=== PATIENT | male | born 1930 | race Caucasian/White ===

== ENCOUNTER 2019-12-11 19:45 | Inpatient (IN) | payer OTHER ==
[~2019-12-11] VITALS: Ht 172.7 cm; Wt 68.0 kg
--- NOTE | 2019-12-11 20:04 | NUR ---
PATIENT CAME TO ER BED 1 C/O NEAR SYNCOPAL EVENT AT HOME. PATIENT STATES THAT HE FELT WEAK AND WENT TO THE FLOOR AFTER MOVING HIS GARBAGE CAN AT HOME. AAOX4. NO SOB. BREATHING EVENLY AND UNLABORED ON ROOM AIR. CONNECTED TO THE TERRITORY SALES MANAGER MEDICAL.
--- NOTE | 2019-12-11 20:08 | NUR ---
FERMÍN CORNELIUS TALKING TO DR. PETERSON REGARDING PT.
--- NOTE | 2019-12-11 20:10 | NUR ---
PATIENT PLACED ON ZOL EKG PADS FOR MONITORING
[2019-12-11 20:18] LABS: BASOPHILS % (AUTO) 0.5 % (0.0-2.0); EOSINOPHILS % (AUTO) 1.7 % (0.0-6.0); HEMATOCRIT 37 % (39-51); HEMOGLOBIN 12.2 g/dL (13.5-17.5); LYMPHOCYTES # (AUTO) 1.6 /CMM (0.8-4.8); LYMPHOCYTES % (AUTO) 17.4 % (20.0-44.0); MEAN CORPUSCULAR HGB CONC 33 g/dl (31.0-36.0); MEAN CORPUSCULAR VOLUME 92 fL (80-96); MONOCYTES # (AUTO) 0.7 /CMM (0.1-1.30); MONOCYTES % (AUTO) 8.1 % (2.0-12.0); NEUTROPHILS # (AUTO) 6.6 /CMM (1.8-8.9); NEUTROPHILS % (AUTO) 72.3 % (43.0-81.0); PLATELET COUNT (AUTO) 127 /CMM (150-450); RED BLOOD CELL COUNT(AUTO) 3.97 MIL/uL (4.5-6.0); WHITE BLOOD COUNT (AUTO) 9.2 K/uL (4.3-11.0)
[2019-12-11 20:25] LABS: CALCIUM, SERUM 9.4 mg/dL (8.5-10.1); CARBON DIOXIDE 25 mmol/L (21-32); CHLORIDE 103 mmol/L (98-107); CREATININE 1.3 mg/dL (0.6-1.3); GLUCOSE 114 mg/dL (74-106); POTASSIUM 4.2 mmol/L (3.5-5.1); SODIUM SERUM 137 mmol/L (136-145); UREA NITROGEN, BLOOD 21 mg/dL (7-18)
--- NOTE | 2019-12-11 20:49 | NUR ---
PATIENT TAKEN TO CT.
--- NOTE | 2019-12-11 20:56 | NUR ---
FERMÍN CORNELIUS SPOKE TO [facility] REGARDING PT.
--- NOTE | 2019-12-11 20:57 | NUR ---
XRAY TAKEN AT RADIOLOGY ROOM.
--- NOTE | 2019-12-11 20:58 | NUR ---
PATIENT RETURNED FROM CT.
--- NOTE | 2019-12-11 21:04 | NUR ---
Note magdalena in EDM - 12/11/19 at 2221 by ALEKSANDRA PATIENT CAME TO BED 1 C/O NEAR SYNCOPAL EVENT AT HOME. PATIENT STATES THAT HE FELT WEAK AND WENT TO THE FLOOR AFTER MOVING HIS GARBAGE CAN AT HOME. AAOX4. NO SOB. BREATHING EVENLY AND UNLABORED ON ROOM AIR. CONNECTED TO THE COMPUTER SCIENCES PROFESSOR.
--- NOTE | 2019-12-11 21:12 | NUR ---
AT BEDSIDE FOR EVAL
--- NOTE | 2019-12-11 21:44 | NUR ---
REPORT CALLED TO REGIONAL SALES LEADEREDU PRINCE. PENDING ICU ADMISSION.
--- NOTE | 2019-12-11 21:55 | NUR ---
SPOKE WITH QUIQUE ON PHONE, PERIPHERALLY CALCIFIED SOFT TISSUE MASS POSTERIOR TO THE LEFT FEMUR.
--- NOTE | 2019-12-11 22:00 | NUR ---
US AT BEDSIDE
[2019-12-11 22:22] VITALS: BP 155/75
--- NOTE | 2019-12-11 22:30 | NUR ---
STEAMFITTER APPRENTICE NOTE 2220 PT ARRIVED TO UNIT, PT A/O X3. SPEAKS CLEAR IN COMPLETE FULL SENTENCES. DENIES ANY PAIN OR DISCOMFORT AT THIS TIME. IV TO RFA AND LFA PATENT AND INTACT, FLUSHING WELL. PT IN NO RESPIRATORY DISTRESS. PT PLACED ON MONITOR, AND MADE COMFORTABLE. HOB ELEVATED, 02 SAT 94-95% RA. PT PLACED ON 02 VIA NC AT 2 L/MIN. VS: 155/75, PULSE 69 TEMP 97.6. AWAITING FOR ORDERS, PAGED. SIDE RAILS UP X2, WITH BED ALARM ON. CALL LIGHT WITH IN REACH WILL CONTINUE TO MONITOR PT.
[2019-12-11 22:52] VITALS: BP 149/113
[2019-12-11] MEDS ORDERED: MAGNESIUM HYDROXIDE 30 ML UDC PO PRN (23:00)
[2019-12-11] MEDS ORDERED: ONDANSETRON HCL/PF 4 MG/2 ML VIAL IVP PRN (23:00)
[2019-12-11] MEDS ORDERED: Z GUARD REMEDY 2 OZ OINT TP PRN (23:00)
[2019-12-11] MEDS ORDERED: MAG HYDROX/AL HYDROX/SIMETH 30 ML UDC PO PRN (23:00)
[2019-12-11] MEDS ORDERED: ACETAMINOPHEN 325 MG TABLET PO PRN (23:00)
[2019-12-11] MEDS ORDERED: ZOLPIDEM TARTRATE 5 MG TABLET PO PRN (23:00)
[2019-12-11] MEDS: IV 1/2NS 1000 ML 1,000 ML IV PRN (23:24)
[2019-12-11 23:30] VITALS: BP 140/69
[2019-12-12] VITALS (29 sets, daily range): BP systolic 132–157; BP diastolic 57–81
[2019-12-12 04:12] LABS: BASOPHILS % (AUTO) 0.5 % (0.0-2.0); EOSINOPHILS % (AUTO) 1.7 % (0.0-6.0); HEMATOCRIT 39 % (39-51); HEMOGLOBIN 13.2 g/dL (13.5-17.5); LYMPHOCYTES # (AUTO) 1.7 /CMM (0.8-4.8); LYMPHOCYTES % (AUTO) 22.5 % (20.0-44.0); MEAN CORPUSCULAR HGB CONC 33 g/dl (31.0-36.0); MEAN CORPUSCULAR VOLUME 92 fL (80-96); MONOCYTES # (AUTO) 0.7 /CMM (0.1-1.30); NEUTROPHILS # (AUTO) 5.1 /CMM (1.8-8.9); NEUTROPHILS % (AUTO) 66.3 % (43.0-81.0); PLATELET COUNT (AUTO) 127 /CMM (150-450); RED BLOOD CELL COUNT(AUTO) 4.29 MIL/uL (4.5-6.0); WHITE BLOOD COUNT (AUTO) 7.7 K/uL (4.3-11.0)
[2019-12-12 04:26] LABS: ALBUMIN 3.5 g/dL (3.4-5.0); BILIRUBIN,TOTAL 0.8 mg/dL (0.2-1.0); CALCIUM, SERUM 9.6 mg/dL (8.5-10.1); CREATININE 1.1 mg/dL (0.6-1.3); PHOSPHORUS 3.3 mg/dL (2.5-4.9); POTASSIUM 4.3 mmol/L (3.5-5.1); TOTAL PROTEIN, SERUM 6.5 g/dL (6.4-8.2)
[2019-12-12 04:34] LABS: THYROID STIMULATING HORMONE 5.663 uIU/mL (0.358-3.74)
--- NOTE | 2019-12-12 07:28 | NUR ---
RN CLOSING NOTE PT AWAKE IN BED WITH HOB ELEVATED. DENIED ANY PAIN OR DISCOMFORT DURING SHIFT. IV TO RFA AND LFA PATENT AND INTACT. PT IN NO RESPIRATORY DISTRESS DURING SHIFT. ON 02 VIA NC AT 2 L/MIN TOLERATING WELL SATURATING AT 97-99% DURING SHIFT. SIDE RAILS UP X2, WITH BED ALARM ON. CALL LIGHT WITH IN REACH, ENDORSED TO AM RN FOR MAGGI
[2019-12-12] MEDS: VALSARTAN 80 MG TABLET PO SCH (08:15)
[2019-12-12] MEDS: ENOXAPARIN SODIUM 40 MG/0.4 ML DISP.SYRIN SQ SCH (08:16)
--- NOTE | 2019-12-12 08:27 | NUR ---
RN NOTE 0715: received patient awake, A/Ox4. No c/o discomfort, no CP, dizziness or palpitations. PIVs intact. IVF infusing as ordered. VSS. SR with 1st degree block 70's on the monitor. 0810: Discussed with patient re: new order of Valsartan and Lovenox and hold home meds, verbalized understanding. Diet tolerated well. Able to inform staffs for needs.
[2019-12-12] MEDS ORDERED: CHLO473M5 MM (08:34)
[2019-12-12] MEDS ORDERED: TERA10CA4 PO (08:34)
[2019-12-12] MEDS ORDERED: GABA-532 PO (08:34)
[2019-12-12] MEDS ORDERED: EZET10TA16 PO (08:34)
[2019-12-12] MEDS ORDERED: ASPI-1169 PO (08:34)
[2019-12-12] MEDS ORDERED: AMLO10TA4 PO (08:34)
[2019-12-12] MEDS ORDERED: METO25TA20 PO (08:34)
[2019-12-12] MEDS ORDERED: LOSA50TA39 PO (08:34)
--- NOTE | 2019-12-12 13:39 | NUR ---
RN NOTE 1100: S/E by Dr. Munoz, with order of DC to [facility]. 1200: Spoke with Britany [facility] [phone] and given info needed. 1310: Per CN, will not able to transfer to [place] secondary to Covid test needed, with order to swab patient today. Made patient aware re: the situation, verbalized understanding.
[2019-12-12] MEDS: IV 1/2NS 1000 ML 1,000 ML IV PRN (17:49)
--- NOTE | 2019-12-12 19:15 | NUR ---
QUALITY ASSISTANT OPENING NOTES: PATIENT CAME FROM ICU, AWAKE A/O X4. NO SOB NOTED. NO COMPLAIN OF PAIN. CALL LIGHT WITHIN REACH. WITH URINAL AT THE BEDSIDE. INSTRUCTED TO CALL FOR ANY HELP,PATIENT VERBALIZED UNDERSTANDING.
--- NOTE | 2019-12-12 19:24 | NUR ---
RN NOTE Transferred patient via ACLS protocol, no significant changes. Endorsed care to Thelma. MANUELS.
[2019-12-13] VITALS: BP 156/76
[2019-12-13 01:10] VITALS: BP 156/76
[2019-12-13 04:00] VITALS: BP 108/55
[2019-12-13 05:37] VITALS: BP 108/55
--- NOTE | 2019-12-13 06:00 | NUR ---
RN CLOSING NOTES: PATIENT IN BED AWAKE A/O X4. NO SOB NOTED. NO COMPLAIN OF PAIN. CALL LIGHT WITHIN REACH. BED ALARM ON. BED IN LOWEST AND LOCKED POSITION. ISOLATION FOR R/O COVID OBSERVED AT ALL TIMES.
--- NOTE | 2019-12-13 07:30 | NUR ---
METAL BUILDING ASSEMBLER OPENING NOTES RECEIVED PT IN BED, AWAKE, A/O X4, AMBULATORY. PT TOLERATING RA, WITH NO ACUTE RESPIRATORY DISTRESS NOTED. PT DENIES ANY PAIN OR DISCOMFORT AT THIS TIME. ON TELEMONITORING CONTROLLED SB 54 WITH OCCASIONAL PACS, PVCS AND BBB. IVF /2 ND AT 50 ML/HR TO RFA G20, INTACT AND OPERATIONAL. PT KEPT COMFORTABLE IN BED. HOB ELEVATED. CALL LIGHT KEPT WITHIN REACH. PT'S BED IN LOWEST, LOCKED POSITION WITH SR X3. WILL CONTINUE PLAN OF CARE.
[2019-12-13 08:00] VITALS: BP_SYST 140; BP_SYST 150; BP_DIAS 52
[2019-12-13] MEDS: ENOXAPARIN SODIUM 40 MG/0.4 ML DISP.SYRIN SQ SCH (08:52)
[2019-12-13] MEDS: VALSARTAN 80 MG TABLET PO SCH (08:53)
[2019-12-13] MEDS: IV 1/2NS 1000 ML 1,000 ML IV PRN (08:53)
[2019-12-13 11:14] LABS: CALCIUM, SERUM 9.7 mg/dL (8.5-10.1); CARBON DIOXIDE 27 mmol/L (21-32); CHLORIDE 105 mmol/L (98-107); CREATININE 1.1 mg/dL (0.6-1.3); GLUCOSE 112 mg/dL (74-106); POTASSIUM 3.7 mmol/L (3.5-5.1); SODIUM SERUM 141 mmol/L (136-145); UREA NITROGEN, BLOOD 14 mg/dL (7-18)
[2019-12-13 11:20] LABS: ALANINE AMINOTRANSFERASE 30 U/L (12-78); ALBUMIN 3.6 g/dL (3.4-5.0); ALKALINE PHOSPHATASE 62 U/L (46-116); ASPARTATE AMINOTRANSFERASE 21 U/L (15-37); BILIRUBIN,TOTAL 0.8 mg/dL (0.2-1.0); PHOSPHORUS 2.6 mg/dL (2.5-4.9); TOTAL PROTEIN, SERUM 6.8 g/dL (6.4-8.2)
--- NOTE | 2019-12-13 11:30 | NUR ---
STOCK DRIER TENDER NOTES PT REPORTED WORSENING BRUISE TO INNER THIGH, PICTURE TAKEN. HOSPITALIST/DR.SAM Roth MADE AWARE. NO NEW ORDERS NOTED AT THIS TIME.
[2019-12-13 12:00] VITALS: BP 145/64
--- NOTE | 2019-12-13 16:38 | NUR ---
ANDROID SOFTWARE ENGINEER NOTES PT ON TELEMONITORING WITH SR 74 WITH OCCASIONAL PACS, PVCS AND BBB. PT DENIES ANY CHEST PAIN OR DISCOMFORT. WILL CONTINUE TO MONITOR.
--- NOTE | 2019-12-13 18:10 | NUR ---
APPRENTICE PAINTER BRUSH NOTES PT REMAINS AWAKE, A/O X4, AMBULATORY. PT TOLERATING RA, WITH NO ACUTE RESPIRATORY DISTRESS NOTED. PT DENIES ANY PAIN OR DISCOMFORT AT THIS TIME. ON TELEMONITORING SR 72 WITH OCCASIONAL PACS, PVCS AND BBB. PIV TO RFA G20, REMOVED AND APPLIED DRESSING. DISCHARGE INSTRUCTIONS AND INVENTORY LIST REVIEWED AND SIGNED BY PT. ALL BELONGINGS WITH THE PT. INSTRUCTED PT TO FOLLOW UP WITH PCP AT [facility] TO ASSESS FOR PACEMAKER, PT UNDERSTOOD TEACHING. ALL NEEDS AND CARE ATTENDED. PT LEFT THE UNIT AT 1800. PT WITH STABLE VITALS. WHEELED PT TO THE LOBBY BY ADRIANA.
--- NOTE | 2019-12-13 18:13 | NUR ---
RN NOTES SKIN ISSUES, PICTURES TAKEN AND FILED IN THE CHART. WILL CONTINUE TO MONITOR.
== END 2019-12-13 18:00 | disposition home or self-care (01) | DRG 309 ==
LOC: ER 19:46 → ICU 21:35 → TELE2 12-12 19:27
PROVIDERS: ADMIT Nurse Practitioner Acute Care
DX: I44.2 Atrioventricular block, complete (principal); D68.69 Other thrombophilia; D63.8 Anemia in other chronic diseases classified elsewhere; D69.6 Thrombocytopenia, unspecified; E86.0 Dehydration; I25.10 Atherosclerotic heart disease of native coronary artery without angina pectoris; Z95.2 Presence of prosthetic heart valve; E78.5 Hyperlipidemia, unspecified; N40.0 Benign prostatic hyperplasia without lower urinary tract symptoms; R55 Syncope and collapse; W19.XXXA Unspecified fall, initial encounter; Y93.9 Activity, unspecified; Y92.009 Unspecified place in unspecified non-institutional (private) residence as the place of occurrence of the external cause; R73.9 Hyperglycemia, unspecified; I49.5 Sick sinus syndrome; L98.8 Other specified disorders of the skin and subcutaneous tissue; I10 Essential (primary) hypertension; Z79.82 Long term (current) use of aspirin; Z86.79 Personal history of other diseases of the circulatory system
CPT/HCPCS: 36415; 70450-TC; 71045-TC; 72125-TC; 73564-TC; 80048-TC; 80053-TC; 80061-TC; 83540-TC; 83735-TC; 84100-TC; 84443-TC; 84484-TC; 85025-TC; 85730-TC; 87081-TC; 93307-TC; 93971-TC; G0378; J1650; J3490

== ENCOUNTER 2021-04-26 03:51 | Emergency (ER) | payer OTHER ==
[~2021-04-26] VITALS: Ht 162.6 cm; Wt 59.0 kg
[~2021-04-26 03:51] MED LIST: AMLO10TA4 PO; ASPI-1169 PO; CHLO473M5 MM; EZET10TA16 PO; GABA-532 PO; LOSA50TA39 PO; METO25TA20 PO; TERA10CA4 PO
[2021-04-26] MEDS ORDERED: IPRATROPIUM NEB FS 0.5 MG/2.5 ML AMPUL.NEB ONE (04:04)
[2021-04-26] MEDS ORDERED: ALBUTEROL FS 2.5 MG/3 ML VIAL.NEB ONE (04:04)
[2021-04-26 04:29] LABS: BASOPHILS # (AUTO) 0.1 K/uL (0.0-0.2); BASOPHILS % (AUTO) 0.9 % (0.0-2.0); EOSINOPHILS % (AUTO) 1.7 % (0.0-6.0); HEMATOCRIT 44 % (39-51); LYMPHOCYTES # (AUTO) 1.5 K/uL (0.8-4.8); LYMPHOCYTES % (AUTO) 16.3 % (20.0-44.0); MEAN CORPUSCULAR HGB CONC 32 g/dl (31.0-36.0); MEAN CORPUSCULAR VOLUME 93 fL (80-96); MONOCYTES # (AUTO) 0.7 K/uL (0.1-1.30); MONOCYTES % (AUTO) 7.4 % (2.0-12.0); NEUTROPHILS # (AUTO) 6.9 K/uL (1.8-8.9); NEUTROPHILS % (AUTO) 73.7 % (43.0-81.0); PLATELET COUNT (AUTO) 178 K/uL (150-450); WHITE BLOOD COUNT (AUTO) 9.4 K/uL (4.3-11.0)
[2021-04-26] MEDS ORDERED: ALBUTEROL FS 2.5 MG/3 ML VIAL.NEB NEB ONE (04:30)
[2021-04-26] MEDS ORDERED: IPRATROPIUM NEB FS 0.5 MG/2.5 ML AMPUL.NEB NEB ONE (04:30)
[2021-04-26 04:38] LABS: CALCIUM, SERUM 9.8 mg/dL (8.5-10.1); CARBON DIOXIDE 26 mmol/L (21-32); CHLORIDE 104 mmol/L (98-107); CREATININE 1.3 mg/dL (0.6-1.3); GLUCOSE 117 mg/dL (74-106); POTASSIUM 4.2 mmol/L (3.5-5.1); SODIUM SERUM 140 mmol/L (136-145); UREA NITROGEN, BLOOD 24 mg/dL (7-18)
--- NOTE | 2021-04-26 04:59 | NUR ---
PAGED EPRP FOR MD CONSULT. AWAITING CALL BACK.
--- NOTE | 2021-04-26 05:42 | NUR ---
Patient discharged to home in stable condition. Written and verbal after care instructions given. Patient verbalizes understanding of instruction.
[2021-04-26 06:21] VITALS: BP 128/65
== END 2021-04-26 05:55 | disposition home or self-care (01) ==
LOC: ER 03:52
DX: G47.34 Idiopathic sleep related nonobstructive alveolar hypoventilation (principal); G47.33 Obstructive sleep apnea (adult) (pediatric); I10 Essential (primary) hypertension; E78.5 Hyperlipidemia, unspecified; Z98.890 Other specified postprocedural states; Z88.6 Allergy status to analgesic agent; Z88.8 Allergy status to other drugs, medicaments and biological substances; Z79.82 Long term (current) use of aspirin; Z79.899 Other long term (current) drug therapy
CPT/HCPCS: 36415; 71045-TC; 80048-TC; 85025-TC